=== PATIENT | male | born 1990 | race African-American/Black ===

== ENCOUNTER 2017-03-13 00:25 | Emergency (ER) | payer OTHER ==
--- NOTE | ~2017-03-13 | CR286 ---
[facility] A Service of [facility] & [facility] RADIOLOGY TEXT RESULTS PATIENT: BLADIMIR LAZCANO LOCATION: [facility] : [birth year] UNIT #: [id number] AGE: [address]: FELTON SCHWARZ APRN SEX: M ORDER DR: [id number] [facility] [address] [facility] [place], [place] [address] [id number] MR#: [id number] Acc #: [id number] NAME: BLADIMIR LAZCANO : 1990 SEX: M STUDY DATE/TIME: 03/13/2017 1:19 UNIT: [facility] ROOM: STUDY DESCRIPTION: CR Wrist W Navicular Min 3 Rt Attending Physician: Felton Schwarz Aprn Ordering Physician: Felton Schwarz Aprn MEDICAL IMAGING REPORT This report is preliminary unless electronic signature is present EXAM Right wrist INDICATIONS Right wrist pain after punching wall tonight. FINDINGS Four views of the right wrist were obtained. There is a transverse fracture which is nondisplaced through the mid scaphoid bone. The other bones are normal. IMPRESSION Transverse, nondisplaced fracture through the scaphoid bone. Dictated by... Sreedhar Jacob M.D. THIS IS AN ELECTRONICALLY VERIFIED REPORT Sreedhar Jacob M.D. at 03/13/2017 3:37 AM BEE/joyce TD: 03/13/2017 01:44 JOB #: [id number] MEDICAL IMAGING REPORT Page 1 of 1 COPY
--- NOTE | ~2017-03-13 | CR142 ---
[facility] A Service of [facility] & [facility] RADIOLOGY TEXT RESULTS PATIENT: BLADIMIR LAZCANO LOCATION: [facility] : [birth year] UNIT #: [id number] AGE: [address]: FELTON SCHWARZ APRN SEX: M ORDER DR: [id number] [facility] [address] [place], [place] [address] [id number] MR#: [id number] Acc #: [id number] NAME: BLADIMIR LAZCANO : 1990 SEX: M STUDY DATE/TIME: 03/13/2017 1:16 UNIT: [facility] ROOM: STUDY DESCRIPTION: CR Hand Min 3 Views Rt Attending Physician: Felton Schwarz Aprn Ordering Physician: Felton Schwarz Aprn MEDICAL IMAGING REPORT This report is preliminary unless electronic signature is present EXAM Three view, right hand INDICATIONS Right hand pain after punching wall earlier tonight. FINDINGS Three views of the right hand were obtained. There is a transverse nondisplaced fracture through the scaphoid bone. The other bones are normal. IMPRESSION Nondisplaced transverse fracture through the scaphoid bone. STAT * RESULT Dictated by... Sreedhar Jacob M.D. THIS IS AN ELECTRONICALLY VERIFIED REPORT Sreedhar Jacob M.D. at 03/13/2017 3:37 AM FEL/psc TD: 03/13/2017 01:34 JOB #: [id number] MEDICAL IMAGING REPORT Page 1 of 1 COPY
[~2017-03-13 00:25] MED LIST: MILK OF MAGNESIA PO; MIRALAX17 GM PO; NICOTINE PATCH1 EACH TD; NORCO1 TAB 10/3 PO; SENNA S TABLET1 TAB PO
== END 2017-03-13 03:59 | disposition home or self-care (01) ==
LOC: CED 00:25
DX: S62.001A Unspecified fracture of navicular [scaphoid] bone of right wrist, initial encounter for closed fracture (principal); J45.909 Unspecified asthma, uncomplicated; F17.210 Nicotine dependence, cigarettes, uncomplicated; W22.8XXA Striking against or struck by other objects, initial encounter; Y92.009 Unspecified place in unspecified non-institutional (private) residence as the place of occurrence of the external cause
CPT/HCPCS: 29125; 73110; 73130; 99283